=== PATIENT | female | born 1970 | race Two or more races ===

== ENCOUNTER 2016-09-04 20:31 | Emergency (ER) | payer SELFPAY ==
[2016-09-04] MEDS ORDERED: ALBUTEROL/IPRATROPIUM 2.5/0.5 MG 3 ML/EACH DOSE ONE (21:56)
[2016-09-04] MEDS ORDERED: IBUPROFEN 600 MG TABLET ONE (21:56)
[2016-09-04] MEDS ORDERED: ACETAMINOPHEN 500 MG TABLET ONE (21:56)
--- NOTE | 2016-09-05 07:35 | RAD ---
CHEST - 2 VIEWS COMPARISON: None. HISTORY: Cough and headache. FINDINGS: Views: Frontal and lateral chest Lungs: Opacity in the superior segment of the right lower lobe. Heart and vessels: Normal Trachea and bronchi: Normal Mediastinum and haley: Normal Costophrenic sulci: Normal Chest wall and bones: Normal. Upper abdomen: Normal. IMPRESSION: Infiltrate in the superior segment of the right lower lobe, evidence of pneumonia. The results were discussed with Nabeel Medley M.D. 09/23/2016 at 07:32.
== END 2016-09-04 22:43 | disposition home or self-care (01) ==
LOC: ED 20:31
DX: J20.9 Acute bronchitis, unspecified (principal); J06.9 Acute upper respiratory infection, unspecified
CPT/HCPCS: 71020; 94664; 99283 ×2; A9270 ×2